=== PATIENT | female | born 1965 | race Caucasian/White ===

== ENCOUNTER 2024-06-23 01:43 | Emergency (ER) | payer OTHER, SELFPAY ==
[2024-06-23 01:44] VITALS: BP 183/115; PULSE 95; RESP 16; TEMP 36.1; O2SAT 99; BMI 38.4
[2024-06-23] MEDS: Oxymetazoline 0.05% 1 SPRAY SPRAY.BTL NASAL (03:49)
--- NOTE | 2024-06-23 05:50 | EX.ED.DYSGE1 ---
HPI History of Present Illness Chief Complaint: Nosebleed Narrative Narrative: Patient is a 59-year-old female with past medical history of MTHFR on folic acid, hypertension who presents to the emergency department with a chief complaint of nosebleed. Patient states that earlier this evening she developed a nosebleed and could not get it to stop. She states that she is not on any blood thinning medications just takes a baby aspirin daily. Patient states that she wanted to come here for the valuation management as her nosebleed was not improving at home. [facility] Medical History Clotting disorder HTN (hypertension) Allergy/AdvReac Type Severity Reaction Status Date / Time No Known Allergies Allergy Verified 06/23/24 01:44 Social History Smoking Status: Unknown if ever smoked ROS ROS ED ROS Narrative Constitutional: Denies fever, chills, headaches Eyes, ears, nose: Complains of nosebleed as noted above Cardiovascular: Denies chest pain Respiratory: Denies shortness of breath EXAM Physical Exam Narrative Exam Narrative: General: Patient lying in bed rest comfortably did not appear to be in acute distress Head: Atraumatic, normocephalic Eyes, ears, nose, throat: Patient at the time my exam and no active bleeding noted PERRL bilaterally, EOMI bilateral, no conjunctival injection noted Neck: Soft, supple, trachea midline Cardiovascular: regular rate and rhythm Neurological: Patient follow commands knew that she was at [facility] years 2024 Skin: Warm, dry, intact no rashes lesions noted Const Vital Signs: 06/23/24 01:44 Temperature 97 F L Temperature Source Temporal Pulse Rate 95 Respiratory Rate 16 Blood Pressure 183/115 H Blood Pressure Mean 137 Pulse Ox 99 MDM MDM MDM Narrative Medical decision making narrative: Patient is a 51-year-old female who presented to the emergency department with a chief complaint of epistaxis. On the differential diagnose includes but not limited to anterior epistaxis, posterior epistaxis. Patient had clipped on nose when I walked in the room I removed this and evaluated the patient she had no active bleeding at this point time. We will observe her here. After observation patient had no further bleeding we started her up to ambulate her and she had a slight ooze from her right nostril. I then ordered Afrin. I had the patient blow her nose to dislodge the clots in her nare I then applied Afrin followed by nasal clip. She was observed here in the emergency department for a extended period of time. Nasal clip was removed a second time after Afrin application and she had no further bleeding noted. She ambulated to the bathroom and back and had no further bleeding. She was advised to refrain from blowing her nose over the next several days and ensure that she is using like a humidifier to ensure moist air. She was given ears nose and throat to follow-up with his well and her primary care physician. She is encouraged return with worsening symptoms or concerns. She is agreeable this plan all question concerns answered she was discharged home in stable condition. Discharge Plan Triage Chief Complaint: Nosebleed ED Provider: Charles Soliman Dx/Rx/DC Orders Clinical Impression: Epistaxis Instructions: ED Epistaxis (Adult) Primary Care Provider: CHELE LOUIE Referrals: CHELE LOUIE [Other] Lee Hauser MD [Med Staff - Courtesy Staff] - Activity Restrictions/Additional Instructions: Follow-up your doctor in outpatient setting. Return with worsening symptoms or other concerns. Print Language: Telugu Disposition Disposition: Home, Self Care Discharge Date/Time: 06/23/24 05:19
== END 2024-06-23 05:19 | disposition home or self-care (01) ==
PROVIDERS: Emergency Provider Emergency Medicine; Visit Provider Emergency Medicine
DX: R04.0 Epistaxis (principal); I10 Essential (primary) hypertension; E72.12 Methylenetetrahydrofolate reductase deficiency; Z79.82 Long term (current) use of aspirin
CPT/HCPCS: 99282